=== PATIENT | female | born 1965 ===

== ENCOUNTER → 2018-09-01 19:39 | Outpatient (REF) | payer OTHER, SELFPAY ==
[2018-09-01 20:05] LABS: Add Manual Diff / Slide Review NO; Basophils Absolute Auto 0 /uL (0-100); Basophils Percent Auto 0.3 % (0-2); Eosinophils Absolute Auto 200 /uL (0-450); Eosinophils Percent Auto 1.7 % (2-4); Hemoglobin 14.6 g/dL (12.0-16.0); Lymphocytes Absolute Auto 1300 /uL (1100-4500); Lymphocytes Percent Auto 14.1 % (25-40); Mean Corpuscular Hemoglobin 29.6 PG (26-34); Monocytes Absolute Auto 700 /uL (0-900); Monocytes Percent Auto 7.5 % (3-14); Neutrophils Absolute Auto 7100 /uL (1500-7000); Neutrophils Percent Auto 76.4 % (50-75); Platelet Count 215 X10^3/uL (150-400); Red Blood Cell Count 4.94 X10^6/uL (4.0-5.2); Red Cell Distribution Width 13.3 % (11.6-14.8); White Blood Cell Count 9.3 X10^3/uL (4.5-11.0)
[2018-09-01 20:13] LABS: HEMOLYSIS < 15 (0-50); Iron 77 ug/dL (37-170)
[2018-09-01 20:15] LABS: Alanine Aminotransferase 33 IU/L (9-52); Albumin 4.3 g/dL (3.5-5.0); Albumin Globulin Ratio 1.5 (1.0-2.8); Alkaline Phosphatase 78 U/L (38-126); Aspartate Aminotransferase 24 IU/L (14-36); Bilirubin Total 0.3 mg/dL (0.2-1.3); Blood Urea Nitrogen 22 mg/dL (7-17); Calcium 9.5 mg/dL (8.4-10.2); Carbon Dioxide 26 mmol/L (22-32); Chloride 102 mmol/L (98-107); Estimated Glomerular Filt Rate 58.2 mL/min (>60); Globulin 2.8 g/dL (1.7-4.1); Glucose 85 mg/dL (70-100); HEMOLYSIS < 15 (0-50); Potassium 3.7 mmol/L (3.4-5.1); Sodium 139 mmol/L (137-145); Total Protein 7.1 g/dL (6.3-8.2)
[2018-09-01 20:23] LABS: Percent Iron Saturation 23 % (15-50); Total Iron Binding Capacity 329 ug/dL (265-497); Transferrin 267 mg/dL (206-381)
[2018-09-01 20:29] LABS: Vitamin D 25 Hydroxy (D3) 51.6 ng/mL (30.0-100.0)
[2018-09-01 21:20] LABS: Folate 4.6 ng/mL (2.76-20.0); Vitamin B12 317 pg/mL (239-931)
== END ==
LOC: LAB 19:39
PROVIDERS: Visit Provider Naturopath
DX: R51 Headache (principal); E55.9 Vitamin D deficiency, unspecified
CPT/HCPCS: 80053; 82306; 82607; 82746; 83540; 83550; 85025; 86663; 86664; 86665